=== PATIENT | female | born 2000 | race Caucasian/White ===

== ENCOUNTER 2024-01-07 18:26 | Emergency (ER) | payer SELFPAY ==
[2024-01-07] MEDS ORDERED: NA CHLORIDE 0.9% 1,000 ML ONE ×2 (18:39→20:34)
[2024-01-07 19:20] LABS: Absolute Lymphocytes (CBC) 1.2 K/uL (0.7-4.9); Absolute Monocytes 0.9 K/uL (0.1-1.3); Absolute Neutrophil 12.1 K/uL (1.8-8.0); Basophils % 0.2 % (0-1.3); Hematocrit 34.6 % (36.0-45.0); Hemoglobin 12.2 g/dL (12.0-15.0); Lymphocytes % 8.4 % (15.3-44.8); MCH 31.2 pg (27.0-35.0); MCHC 35.2 g/dL (32.0-36.0); MCV 88.6 fL (80-100); MPV 7.5 fL (7.6-11.3); Monocytes % 6.4 % (3.3-12.3); Platelets 281 thou/uL (152-406); Red Cell Distribution Width 13.3 % (12.1-15.2)
[2024-01-07 19:24] LABS: PT Prothrombin Time 11.6 SECONDS (9.5-12.5); PTT, Activated Partial Thromb 28.6 SECONDS (24.3-36.9); Protime INR 1.06
[2024-01-07 19:31] LABS: Albumin 3.3 g/dL (3.4-5.0); Albumin/Globulin Ratio 0.8 (1.1-1.8); Anion Gap 9.5 mEq/L (5.0-15.0); Bilirubin Total 2.7 mg/dL (0.2-1.0); Globulin 4.1 g/dL (2.3-3.5); Potassium 3.5 mEq/L (3.5-5.1); Protein, Total 7.4 g/dL (6.4-8.2)
--- NOTE | 2024-01-07 19:51 | RAD REPORT ---
EXAM DESCRIPTION: US - OB Limited - 01/07/2024 7:39 pm CLINICAL HISTORY: ABD PAIN Limited assessment, pain COMPARISON: No comparisons FINDINGS: A single cephalic presenting gestation is identified. Heart rate normal. measurements are as follows: AC:18.7 Centimeters 23 weeks 3 days FL:3.7 Centimeters 21 weeks 6 days The estimated gestational age (EGA) is 22 weeks 5 days with an JOSE MARTIN of05/07/2024. The placenta is fundal. The amniotic fluid index is grossly normal. IMPRESSION: Single live fetus as detailed above. No acute process seen.
[2024-01-07 21:09] LABS: Specific Gravity 1.015 (1.005-1.030); Sqamous Epithelial <5 /HPF (None Seen); Urine Bacteria None Seen /HPF (<20); Urine Bilirubin NEGATIVE (Negative); Urine Blood Negative (Negative); Urine Clarity Turbid (Clear); Urine Color Yellow (Yellow); Urine Culture Reflex Order NOT NEEDED; Urine Glucose NEGATIVE (Negative); Urine Ketones 1+ (Negative); Urine Microscopic Reflex YN ORDER UMIC; Urine Mucus Slight /HPF (None Seen); Urine Nitrite NEGATIVE (Negative); Urine Protein NEGATIVE (Negative); Urine RBC <5 /HPF (None Seen); Urine Urobilinogen 1+ (Normal); Urine WBC <5 /HPF (<5); Urine pH 6.5 (5.0-7.0)
--- NOTE | 2024-01-07 21:49 | EDPHYS ---
Physician Documentation [facility] Name: Elias Shen Age: 23 yrs Sex: Female : 2000 Arrival Date: 01/07/2024 Time: 18:26 Bed 13 Private MD: ED Physician Fei Hauser HPI: 01/06 21:45 This 23 yrs old Female presents to ER via Wheelchair with complaints of 22 Weeks kb , Vomiting, Shaking. 21:45 Pt is a 23 year old female who is 22 weeks who presents for RLQ pain that kb radiates across lower abd and into back that started last night. Reports nausea and vomiting today as well. Denies fever, but reports "shaking." Pt recently moved here from [place] so does not have an OB and hasn't seen one since she was 15 weeks. . MANAGER ADMINISTRATIVE SERVICES: 22:35 2, Premature 1, Verified cp4 Historical: - Allergies: 18:32 Amoxicillin; ll1 18:32 CLAVULANIC ACID; ll1 - PMHx: 18:32 GI issues; ll1 - PSHx: 18:32 Appendectomy; Cholecystectomy; ll1 - Immunization history:: Adult Immunizations up to date. - Infectious Disease History:: Denies. - Social history:: Smoking status: Patient denies any tobacco usage or history of. ROS: 20:32 Constitutional: As per HPI kb Exam: 20:05 Constitutional: This is a well developed, well nourished patient who is awake, alert, kb and in no acute distress. Head/Face: Normocephalic, atraumatic. ENT: Moist Mucous membranes Cardiovascular: Tachycardic rate Respiratory: Respirations even and unlabored. No increased work of breathing. Talking in full sentences Skin: Warm, dry with normal turgor. Normal color. MS/ Extremity: Pulses equal, no cyanosis. Neurovascular intact. Full, normal range of motion. Neuro: Awake and alert, GCS 15, oriented to person, place, time, and situation. Moves all extremities. Normal gait. 20:05 ECG was reviewed by the Attending Physician. 20:05 Abdomen/GI: Inspection: gravid appearance, is noted, Bowel sounds: normal, Palpation: soft, in all quadrants, moderate abdominal tenderness, in the right lower quadrant and left lower quadrant, Vital Signs: 18:33 BP 110 / 94; Pulse 150; Resp 17; Temp 98.9(O); Pulse Ox 100% ; Weight 55.79 kg; Height ll1 5 ft. 7 in. ; Pain 9/10; 19:49 BP 112 / 72; Pulse 125; Resp 18; Pulse Ox 100% ; cp4 20:41 BP 128 / 51; Pulse 134; Resp 18; Pulse Ox 100% ; cp4 21:21 BP 118 / 68; Pulse 149; Resp 18; Pulse Ox 100% ; cp4 22:35 BP 106 / 54; Pulse 147; Resp 18; Pulse Ox 100% ; cp4 18:33 Body Mass Index 19.26 (55.79 kg, 170.18 cm) ll1 18:33 Pain Scale: Adult ll1 MDM: 18:28 Patient medically screened. kb 21:42 Differential diagnosis: UTI, pyelonephritis, ovarian cyst, nonspecific abd pain, kb intraabdominal infection. Consideration of Admission/Observation Escalation of care including admission/observation considered. pt will be transferred due to lack of OB services at this facility. Management of patient was discussed with the following: Dr Pierre, [facility], accepts pt for transfer. Counseling: I had a detailed discussion with the patient and/or guardian regarding the historical points, exam findings, and any diagnostic results supporting the discharge/admit diagnosis, lab results, radiology results, the need to transfer to another facility, [facility] Replaced by [facility] does not immediately have the required specialist. 21:49 Data reviewed: vital signs, nurses notes. kb 01/06 18:35 Order name: Blood Culture Adult (2) kb 01/06 18:35 Order name: CBC with Diff; Complete Time: 19:26 kb 01/06 18:35 Order name: CMP; Complete Time: 19:33 kb 01/06 18:35 Order name: Lactate w/ 2H reflex if indic.; Complete Time: 19:53 kb 01/06 18:35 Order name: Protime (+inr); Complete Time: 19:26 kb 01/06 18:35 Order name: Ptt, Activated; Complete Time: 19:26 kb 01/06 18:35 Order name: Urinalysis w/ reflexes; Complete Time: 21:10 kb 01/06 18:35 Order name: OB Limited US; Complete Time: 19:53 kb 01/06 18:35 Order name: Accucheck; Complete Time: 19:00 kb 01/06 18:35 Order name: Cardiac monitoring; Complete Time: 18:43 kb 01/06 18:35 Order name: EKG - Nurse/Tech; Complete Time: 19:39 kb 01/06 18:35 Order name: IV Saline Lock - Large Bore; Complete Time: 19:00 kb 01/06 18:35 Order name: Labs collected and sent; Complete Time: 19:00 kb 01/06 18:35 Order name: O2 Per Protocol; Complete Time: 18:43 kb 01/06 18:35 Order name: O2 Sat Monitoring; Complete Time: 18:43 kb 01/06 18:35 Order name: Vital Signs; Complete Time: 18:43 kb EC:05 Rate is 127 beats/min. Rhythm is regular. QRS [place] is Normal. MA interval is normal at kb 166 msec. QRS interval is normal at 74 msec. QT interval is normal at 418 msec. Administered Medications: 19:00 Drug: NS 0.9% IV 1000 ml IV at 1000 ml once Route: IV; Rate: 1000 ml; Site: right bp forearm; 20:40 Follow up: Response: No adverse reaction; IV Status: Completed infusion cp4 20:40 Drug: NS 0.9% IV 1000 ml IV at 125 ml/hr continuous Route: IV; Rate: 125 ml/hr; Site: cp4 right antecubital; Disposition Summary: 01/07/24 21:48 Transfer Ordered Notes: Transfer Location: [facility] kb Reason: Higher level of care kb Condition: Stable kb Problem: new kb Symptoms: are unchanged kb Accepting Physician: Dr Pierre(01/07/24 22:38) cp4 Diagnosis - 22 weeks gestation of kb - Lower abdominal pain, unspecified kb - Elevated white blood cell count kb - Hyperbilirubinemia kb - Tachycardia, unspecified kb Discharge Instructions: - Discharge Summary Sheet cp4 Forms: - Medication Reconciliation Form kb - SBAR form cp4 Signatures: Dispatcher [employer] Danya Jo FNP-C FNP-Сергей Magallanes, RN RN Ketan Blandon RN RN ll1 Nadine Leary cp4 Corrections: (The following items were deleted from the chart) 18:36 18:36 OB Limited+US.RAD.BRZ ordered. EDMS EDMS 22:38 21:48 Dr Ignacio jiménez cp4
--- NOTE | 2024-01-07 21:49 | ER ---
Nurse's Notes [facility] Name: Elias Shen Age: 23 yrs Sex: Female : 2000 Arrival Date: 01/07/2024 Time: 18:26 Bed 13 Private MD: Diagnosis: 22 weeks gestation of ;Lower abdominal pain, unspecified;Elevated white blood cell count;Hyperbilirubinemia;Tachycardia, unspecified Presentation: 01/06 18:33 Chief complaint: Patient states: 22 weeks . N/V, weak, shaky since last night. ll1 G2, P1. Coronavirus screen: Client denies travel out of the [place] in the last 14 days. Ebola Screen: Patient denies travel to an Ebola-affected area in the 21 days before illness onset. Initial Sepsis Screen: Does the patient meet any 2 criteria? No. Patient's initial sepsis screen is negative. Does the patient have a suspected source of infection? No. Patient's initial sepsis screen is negative. Risk Assessment: Do you want to hurt yourself or someone else? Patient reports no desire to harm self or others. Onset of symptoms was January 06, 2024. 18:33 Method Of Arrival: Wheelchair ll1 18:33 Acuity: CHARLES 2 ll1 Triage Assessment: 18:41 General: Appears uncomfortable, Behavior is calm, cooperative, appropriate for age. hb General: Reports feeling ill for fatigue for. Pain: Complains of pain in abdomen Pain currently is 9 out of 10 on a pain scale. Quality of pain is described as aching. GI: Reports lower abdominal pain, nausea, vomiting. 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 - Infectious Disease History:: Denies. - Social history:: Smoking status: Patient denies any tobacco usage or history of. Screenin:[facility] ED Fall Risk Assessment (Adult) History of falling in the last 3 months, bp including since admission No falls in past 3 months (0 pts). Abuse screen: Denies threats or abuse. Denies injuries from another. Nutritional screening: No deficits noted. Tuberculosis screening: No symptoms or risk factors identified. Assessment: 18:45 General: Appears distressed, slender, Behavior is cooperative, appropriate for age, bp anxious. Pain: Denies pain. Cardiovascular: Rhythm is sinus tachycardia. GI: Abdomen is non-distended, Reports nausea. 21:22 Reassessment: Provider aware of heart rate. Fluids now bolusing. cp4 Vital Signs: 18:33 BP 110 / 94; Pulse 150; Resp 17; Temp 98.9(O); Pulse Ox 100% ; Weight 55.79 kg; Height ll1 5 ft. 7 in. ; Pain 9/10; 19:49 BP 112 / 72; Pulse 125; Resp 18; Pulse Ox 100% ; cp4 20:41 BP 128 / 51; Pulse 134; Resp 18; Pulse Ox 100% ; cp4 21:21 BP 118 / 68; Pulse 149; Resp 18; Pulse Ox 100% ; cp4 22:35 BP 106 / 54; Pulse 147; Resp 18; Pulse Ox 100% ; cp4 18:33 Body Mass Index 19.26 (55.79 kg, 170.18 cm) ll1 18:33 Pain Scale: Adult ll1 ED Course: 18:27 Patient arrived in ED. rg4 18:28 [facility] Tyson [facility]C [facility] kb 18:28 Fei Hauser MD is Attending Physician. kb 18:32 Arm band placed on. ll1 18:34 Triage completed. ll1 18:36 Сергей Agustin, DANGELO is Primary Nurse. bp 18:59 Inserted saline lock: 20 gauge in right forearm, using aseptic technique. Blood bp collected. 19:00 Patient has correct armband on for positive identification. Bed in low position. bp 19:41 OB Limited US In Process Unspecified. EDMS 22:36 Provided Education on: tachycardia, . cp4 22:36 No provider procedures requiring assistance completed. Patient transferred, IV remains cp4 in place. Administered Medications: 19:00 Drug: NS 0.9% IV 1000 ml IV at 1000 ml once Route: IV; Rate: 1000 ml; Site: right bp forearm; 20:40 Follow up: Response: No adverse reaction; IV Status: Completed infusion cp4 20:40 Drug: NS 0.9% IV 1000 ml IV at 125 ml/hr continuous Route: IV; Rate: 125 ml/hr; Site: cp4 right antecubital; Medication: 22:38 VIS not applicable for this client. cp4 Outcome: 21:48 ER care complete, transfer ordered by MD. jiménez 22:36 Transferred [facility] Transfer form completed. X-rays sent w/ cp4 patient. 22:36 Condition: stable 22:36 Instructed on the need for transfer, 22:38 Patient left the ED. cp4 Signatures: Dispatcher [employer] EDMS Danya Tyson, BRAND AMBASSADOR-C BRAND AMBASSADOR-CkShalini Quigley, RN RN Luz Ledezma rg4 Сергей Agustin RN RN bp Ketan Martinez RN RN ll1 Nadine Leary cp4 Corrections: (The following items were deleted from the chart) 18:42 18:33 Chief complaint: Patient states: 22 weeks . N/V, weak, shaky since last hb night ll1
[2024-01-07 22:49] VITALS: TEMP 98.9; O2SAT 100
[2024-01-07 23:09] VITALS: BP 106/54
--- NOTE | 2024-01-10 15:00 | EKG ---
Test Date: 2024-01-07 Test Time: 19:43:01 Straw Boss: FRANK MEASUREMENT RESULTS: Intervals: Rate: 127 AL: 166 QRSD: 74 QT: 288 QTc: 418 [place]: P: 71 AL: 166 QRS: 93 T: 63 INTERPRETIVE STATEMENTS: Sinus tachycardia Otherwise normal ECG No previous ECG available for comparison Electronically Signed On 01-10-24 14:53:27 CDT by Ke Hutchins
== END 2024-01-07 22:38 | disposition short-term general hospital (02) ==
LOC: ER 18:26
DX: O26.612 Liver and biliary tract disorders in pregnancy, second trimester (principal); O99.891 Other specified diseases and conditions complicating pregnancy; E80.6 Other disorders of bilirubin metabolism; D72.829 Elevated white blood cell count, unspecified; Z3A.22 22 weeks gestation of pregnancy
CPT/HCPCS: 36415; 76815; 80053; 81001; 83605; 85025; 85610; 85730; 87040; 93005; 96360; 96361; 99285; J7030

== ENCOUNTER 2024-05-18 17:53 | Emergency (ER) | payer SELFPAY ==
[2024-05-18 19:58] LABS: Absolute Lymphocytes (CBC) 1.6 K/uL (0.7-4.9); Absolute Monocytes 0.5 K/uL (0.1-1.3); Absolute Neutrophil 8.8 K/uL (1.8-8.0); Basophils % 0.4 % (0-1.3); Eosinophils % 0.1 % (0-4.4); Hematocrit 35.6 % (36.0-45.0); Hemoglobin 12.2 g/dL (12.0-15.0); Lymphocytes % 14.4 % (15.3-44.8); MCH 28.1 pg (27.0-35.0); MCHC 34.2 g/dL (32.0-36.0); MCV 82.2 fL (80-100); MPV 7.1 fL (7.6-11.3); Monocytes % 4.8 % (3.3-12.3); Neutrophils % 80.3 % (41.7-73.7); Nucleated Red Blood Cells % 0.1 % (0-0); Platelets 314 thou/uL (152-406); RBC Red Blood Cell Count 4.34 M/uL (3.86-4.86); Red Cell Distribution Width 16.7 % (12.1-15.2)
[2024-05-18] MEDS ORDERED: CLINDAMYCIN 900MG/D5W 900 MG/50 ML IVPB IV ONE (20:08)
[2024-05-18] MEDS ORDERED: NA CHLORIDE 0.9% 100 ML ONE (20:08)
[2024-05-18] MEDS ORDERED: IBUPROFEN 200 MG TAB PO ONE (20:08)
[2024-05-18] MEDS ORDERED: IBUPROFEN 400 MG TAB ONE (20:08)
[2024-05-18] MEDS ORDERED: ACETAMINOPHEN 500 MG TAB ONE (20:08)
[2024-05-18] MEDS ORDERED: NA CHLORIDE 0.9% 2,000 ML ONE (20:09)
[2024-05-18] MEDS ORDERED: CEFAZOLIN SODIUM 2 GM/VIAL ONE (20:09)
[2024-05-18 20:31] LABS: Albumin 3.1 g/dL (3.4-5.0); Albumin/Globulin Ratio 0.7 (1.1-1.8); Anion Gap 10.8 mEq/L (5.0-15.0); Bilirubin Total 0.7 mg/dL (0.2-1.0); Globulin 4.2 g/dL (2.3-3.5); Potassium 2.8 mEq/L (3.5-5.1); Protein, Total 7.3 g/dL (6.4-8.2)
--- NOTE | 2024-05-18 20:50 | EDPHYS ---
Physician Documentation [facility] Name: Elias Shen Age: 23 yrs Sex: Female : 2000 Arrival Date: 05/18/2024 Time: 17:53 Bed 14 Private MD: ED Physician Fei Hauser HPI: 05/18 19:20 This 23 yrs old Female presents to ER via Ambulatory with complaints of annie Passed Out Prior To Arrival, Flu Symptoms, Breast Lump. 19:20 The patient has experienced near-syncope, almost passed out, felt dizzy, felt faint. annie Onset: The symptoms/episode began/occurred just prior to arrival. Duration: This was a single episode. Context: the episode(s) was witnessed, by family. Associated injury: The patient did not suffer any apparent associated injury. Associated signs and symptoms: The patient has no apparent associated signs or symptoms. Current symptoms: Currently, the patient is not experiencing any symptoms, the patient feels back to baseline. The patient has not experienced similar symptoms in the past. 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 - Infectious Disease History:: Denies. - Social history:: Smoking status: Patient denies any tobacco usage or history of. - Family history:: not pertinent. ROS: 19:20 Eyes: Negative for injury, pain, redness, and discharge, ENT: Negative for injury, annie pain, and discharge, Neck: Negative for injury, pain, and swelling, Respiratory: Negative for shortness of breath, cough, wheezing, and pleuritic chest pain, Abdomen/GI: Negative for abdominal pain, nausea, vomiting, diarrhea, and constipation, Back: Negative for injury and pain, : Negative for injury, bleeding, discharge, and swelling, MS/Extremity: Negative for injury and deformity, Neuro: Negative for headache, weakness, numbness, tingling, and seizure, Psych: Negative for depression, anxiety, suicide ideation, homicidal ideation, and hallucinations, Allergy/Immunology: Negative for hives, rash, and allergies, Endocrine: Negative for neck swelling, polydipsia, polyuria, polyphagia, and marked weight changes, Hematologic/Lymphatic: Negative for swollen nodes, abnormal bleeding, and unusual bruising, 19:20 Cardiovascular: Positive for palpitations, 19:20 Skin: Positive for erythema, swelling, of the left lateral anterior chest and left breast, Exam: 19:20 Constitutional: This is a well developed, well nourished patient who is awake, alert, annie and in no acute distress. Head/Face: Normocephalic, atraumatic. Eyes: Pupils equal round and reactive to light, extra-ocular motions intact. Lids and lashes normal. Conjunctiva and sclera are non-icteric and not injected. Cornea within normal limits. Periorbital areas with no swelling, redness, or edema. ENT: Nares patent. No nasal discharge, no septal abnormalities noted. Tympanic membranes are normal and external auditory canals are clear. Oropharynx with no redness, swelling, or masses, exudates, or evidence of obstruction, uvula midline. Mucous membranes moist. Neck: Trachea midline, no thyromegaly or masses palpated, and no cervical lymphadenopathy. Supple, full range of motion without nuchal rigidity, or vertebral point tenderness. No Meningismus. Chest/axilla: Normal chest wall appearance and motion. Nontender with no deformity. No lesions are appreciated. Cardiovascular: Regular rate and rhythm with a normal S1 and S2. No gallops, murmurs, or rubs. Normal PMI, no JVD. No pulse deficits. Respiratory: Lungs have equal breath sounds bilaterally, clear to auscultation and percussion. No rales, rhonchi or wheezes noted. No increased work of breathing, no retractions or nasal flaring. Abdomen/GI: Soft, non-tender, with normal bowel sounds. No distension or tympany. No guarding or rebound. No evidence of tenderness throughout. Back: No spinal tenderness. No costovertebral tenderness. Full range of motion. Skin: Warm, dry with normal turgor. Normal color with no rashes, no lesions, and no evidence of cellulitis. Neuro: Awake and alert, GCS 15, oriented to person, place, time, and situation. Cranial nerves II-XII grossly intact. Motor strength 5/5 in all extremities. Sensory grossly intact. Cerebellar exam normal. Normal gait. Psych: Awake, alert, with orientation to person, place and time. Behavior, mood, and affect are within normal limits. 19:20 Musculoskeletal/extremity: ROM: intact in all extremities, full active range of motion, full passive range of motion, Circulation is intact in all extremities. Sensation intact. Compartment Syndrome exam of affected extremity: the left lateral anterior chest, left nipple and left breast Vital Signs: 18:28 BP 129 / 91; Pulse 110; Resp 18; Temp 100.6(O); Pulse Ox 96% ; Weight 52.16 kg; Height db 5 ft. 7 in. ; Pain 7/10; 20:41 BP 125 / 82; Pulse 96; Pulse Ox 100% on R/A; MAP 94 mmHg; tm6 22:22 BP 127 / 86; Pulse 94; Resp 19; Temp 99.5; Pulse Ox 99% on R/A; MAP 98 mmHg; Pain 0/10; tm6 18:28 Body Mass Index 18.01 (52.16 kg, 170.18 cm) db 18:28 Pain Scale: Adult db 22:22 Pain Scale: Adult tm6 MDM: 18:38 Medical Screening Exam initiated annie 19:23 Differential Diagnosis: sepsis. Data reviewed: vital signs, nurses notes, lab test annie result(s), radiologic studies, ultrasound. Consideration of Admission/Observation Escalation of care including admission/observation considered. I considered the following discharge prescriptions or medication management in the emergency department Medications were administered in the Emergency Department. See MAR. 05/18 19:20 Order name: CBC with Diff; Complete Time: 20:10 [facility] 05/18 19:20 Order name: Comprehensive Metabolic Panel; Complete Time: 20:35 [facility] 05/18 19:25 Order name: Blood Culture Adult (2) [facility] 05/18 19:25 Order name: Lactate w/ 2H reflex if indic.; Complete Time: 20:16 [facility] 05/18 21:34 Order name: Extremity Nonvascular Complete EDMS 05/18 18:40 Order name: PO challenge; Complete Time: 21:58 [facility] 05/18 20:35 Order name: PO challenge: JUICE X2; Complete Time: 21:50 annie Administered Medications: 19:16 CANCELLED (Duplicate Order): [id number] mg PO once annie 20:38 Drug: Acetaminophen PO 1000 mg PO once Route: PO; tm6 21:58 Follow up: Response: No adverse reaction tm6 20:38 Drug: Ibuprofen PO 600 mg PO once Route: PO; tm6 21:58 Follow up: Response: No adverse reaction tm6 20:38 Drug: NS 0.9% IV 1000 ml IV at 1000 ml once; to be given as a bolus over 60 minutes tm6 Route: IV; Rate: 1000 ml; Site: right antecubital; 22:07 Follow up: Response: No adverse reaction; IV Status: Completed infusion; IV Intake: tm6 1000ml 20:38 Drug: ceFAZolin IVPB 2 grams IVPB once over 30 mins; (mix in 100 mL NS) Route: IVPB; tm6 Infused Over: 30 mins; Site: right antecubital; 21:50 Follow up: Response: No adverse reaction; IV Status: Completed infusion; IV Intake: tm6 100ml 20:38 Drug: NS 0.9% IV 1000 ml IV at 1 bolus Per protocol; to be given as a bolus over 60 tm6 minutes Route: IV; Rate: 1 bolus; Site: right antecubital; 22:07 Follow up: Response: No adverse reaction; IV Status: Completed infusion; IV Intake: tm6 1000ml 21:49 Drug: Clindamycin IVPB 900 mg IVPB once over 30 mins; (mix in 50 mL) Route: IVPB; tm6 Infused Over: 30 mins; Site: right antecubital; 22:08 Follow up: Response: No adverse reaction; IV Status: Completed infusion; IV Intake: [id number] 22:07 Drug: Cephalexin PO 500 mg PO once Route: PO; tm6 22:07 Drug: Clindamycin PO 300 mg PO once Route: PO; tm6 22:07 Drug: Potassium PO Effervescent Tablet 50 mEq PO once; dissolve in 4 ounces of water or tm6 juice Route: PO; 22:07 Drug: Potassium PO Effervescent Tablet 25 mEq PO once; dissolve in 4 ounces of water or tm6 juice BEFORE DISPO Route: PO; Disposition Summary: 05/18/24 20:49 Discharge Ordered Notes: Location: Home annie Problem: new annie Symptoms: have improved annie Condition: Stable annie Diagnosis - Fever, unspecified annie - Nonpurulent mastitis associated with annie - Breast engorgement of annie - Hypokalemia annie Followup: annie - With: Private Physician - When: 2 - 3 days - Reason: Recheck today's complaints, Continuance of care, Re-evaluation by your physician Followup: [facility] - With: Robert Peralta MD - When: 2 - 3 days - Reason: Recheck today's complaints, Re-evaluation by your physician Discharge Instructions: - Discharge Summary Sheet [facility] - Potassium Content of Foods annie - Fever, Adult annie - Mastitis [facility] - and Mastitis [facility] - Mastitis, [id number] [facility] - Fever, Adult, [id number] [facility] - Hypokalemia [facility] Forms: - Medication Reconciliation Form [facility] - Antibiotic Education [facility] - Prescription Opioid Use [facility] - Patient Portal Instructions [facility] - Leadership Thank You Letter [facility] Prescriptions: - Cephalexin 500 mg Oral capsule - take 1 capsule ORAL route every 6 hours for 7 days; 28 capsule; Refills: 0, [facility] Product Selection Permitted - Clindamycin HCl 300 mg Oral capsule - take 1 capsule ORAL route every 6 hours for 7 days; 28 capsule; Refills: 0, [facility] Product Selection Permitted - Potassium Chloride 20 meq Oral Packet - take 1 packet ORAL route once daily 1 packet in 6 (six) ounces of water or [facility] juice; Take after meal; 14 packet; Refills: 0, Product Selection Permitted Signatures: Dispatcher [employer] EDFei Zavaleta MD MD cha Benton, Danielle, RN RN Mellisa Araujo RN RN tm6 Corrections: (The following items were deleted from the chart) 19:16 18:40 EKG - Nurse/Tech ordered. [facility] 19:16 18:40 AZITHromycin PO 500 mg PO once ordered. [facility] 21:27 19:20 Extrmty Nonvasular Limited+US.RAD.BRZ ordered. EDCO EDMS 21:34 20:57 Follow Up Breast Axilla Comp ordered. EDMS EDMS
--- NOTE | 2024-05-18 20:50 | ER ---
Nurse's Notes [facility] Name: Elias Shen Age: 23 yrs Sex: Female : 2000 Arrival Date: 05/18/2024 Time: 17:53 Bed 14 Private MD: Diagnosis: Fever, unspecified;Nonpurulent mastitis associated with ;Breast engorgement of ;Hypokalemia Presentation: 05/18 18:28 Chief complaint: Patient states: LEFT BREAST REDNESS X 4 DAYS. STATES IS BREAST db FEEDING. 13 DAYS POST . FEVER AND FLU LIKE SYMPTOMS STARTED TODAY TOOK IBUPROFEN AND TYLENOL AT 1400 TODAY. Coronavirus screen: Client denies travel out of the [place] in the last 14 days. At this time, the client does not indicate any symptoms associated with coronavirus-19. Ebola Screen: Patient negative for fever greater than or equal to 101.5 degrees Fahrenheit, and additional compatible Ebola Virus Disease symptoms Patient denies exposure to infectious person. Patient denies travel to an Ebola-affected area in the 21 days before illness onset. No symptoms or risks identified at this time. Initial Sepsis Screen: Does the patient meet any 2 criteria? HR > 90 bpm. No. Patient's initial sepsis screen is negative. Does the patient have a suspected source of infection? No. Patient's initial sepsis screen is negative. Risk Assessment: Do you want to hurt yourself or someone else? Patient reports no desire to harm self or others. Onset of symptoms was May 18, 2024. 18:28 Method Of Arrival: Ambulatory db 18:28 Acuity: CHARLES 3 db Triage Assessment: 18:31 General: Appears in no apparent distress. comfortable, Behavior is calm, cooperative. db Pain: Complains of pain in chest, LEFT BREAST. Neuro: Level of Consciousness is awake, alert, obeys commands, Oriented to person, place, time, situation. Respiratory: Airway is patent Respiratory effort is even, unlabored, Respiratory pattern is regular, symmetrical. 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 - Infectious Disease History:: Denies. - Social history:: Smoking status: Patient denies any tobacco usage or history of. - Family history:: not pertinent. Screenin:42 [facility] ED Fall Risk Assessment (Adult) History of falling in the last 3 months, tm6 including since admission No falls in past 3 months (0 pts) Confusion or Disorientation No (0 pts) Intoxicated or Sedated No (0 pts) Impaired Gait No (0 pts) Mobility Assist Device Used No (0 pt) Altered Elimination No (0 pt) Score/Fall Risk Level 0 - 2 = Low Risk Oriented to surroundings, Maintained a safe environment, Educated pt \T\ family on fall prevention, incl call for assistance when getting out of bed. Abuse screen: Denies threats or abuse. Denies injuries from another. Nutritional screening: No deficits noted. Tuberculosis screening: No symptoms or risk factors identified. Assessment: 20:41 General: Appears in no apparent distress. Behavior is calm, cooperative. Pain: tm6 Complains of pain in left breast. Neuro: Level of Consciousness is awake, alert, obeys commands, Oriented to person, place, time, situation. Cardiovascular: Patient's skin is warm and dry. Respiratory: Airway is patent Respiratory effort is even, unlabored, Respiratory pattern is regular, symmetrical. GI: No signs and/or symptoms were reported involving the gastrointestinal system. Abdomen is flat, non-distended. : No signs and/or symptoms were reported regarding the genitourinary system. EENT: No signs and/or symptoms were reported regarding the EENT system. Derm: No signs and/or symptoms reported regarding the dermatologic system. Musculoskeletal: Reports pain in left breast. 22:23 Reassessment: Patient and/or family updated on plan of care and expected duration. Pain tm6 level reassessed. Patient is alert, oriented x 3, equal unlabored respirations, skin warm/dry/pink. Vital Signs: 18:28 BP 129 / 91; Pulse 110; Resp 18; Temp 100.6(O); Pulse Ox 96% ; Weight 52.16 kg; Height db 5 ft. 7 in. ; Pain 7/10; 20:41 BP 125 / 82; Pulse 96; Pulse Ox 100% on R/A; MAP 94 mmHg; tm6 22:22 BP 127 / 86; Pulse 94; Resp 19; Temp 99.5; Pulse Ox 99% on R/A; MAP 98 mmHg; Pain 0/10; tm6 18:28 Body Mass Index 18.01 (52.16 kg, 170.18 cm) db 18:28 Pain Scale: Adult db 22:22 Pain Scale: Adult tm6 ED Course: 17:55 Patient arrived in ED. im 18:31 Triage completed. db 18:31 Arm band placed on right wrist. Patient placed in waiting room. db 18:38 Fei Hauser MD is Attending Physician. annie 19:28 First set of blood cultures drawn by me. ty 19:40 Initial lab(s) drawn, by me, sent to lab. Second set of blood cultures drawn. ty 19:46 Inserted saline lock: 22 gauge in right antecubital area, using aseptic technique. ty Blood collected. Flushed with 10 mL NS. 20:04 Mellisa Sellers, DANGELO is Primary Nurse. tm6 20:23 Fei Pena PA is PHCP. cp 20:42 Patient has correct armband on for positive identification. Bed in low position. Call tm6 light in reach. Side rails up X 1. Provided Education on: use of call astudillo. Client placed on continuous cardiac and pulse oximetry monitoring. NIBP monitoring applied. Pulse ox on. NIBP on. Door closed. Noise minimized. Warm blanket given. 20:49 Robert Peralta MD is Referral Physician. annie 21:48 Extremity Nonvascular Complete In Process Unspecified. EDMS 22:23 No provider procedures requiring assistance completed. IV discontinued, intact, tm6 bleeding controlled, No redness/swelling at site. Pressure dressing applied. Administered Medications: 19:16 CANCELLED (Duplicate Order): [id number] mg PO once annie 20:38 Drug: Acetaminophen PO 1000 mg PO once Route: PO; tm6 21:58 Follow up: Response: No adverse reaction tm6 20:38 Drug: Ibuprofen PO 600 mg PO once Route: PO; tm6 21:58 Follow up: Response: No adverse reaction tm6 20:38 Drug: NS 0.9% IV 1000 ml IV at 1000 ml once; to be given as a bolus over 60 minutes tm6 Route: IV; Rate: 1000 ml; Site: right antecubital; 22:07 Follow up: Response: No adverse reaction; IV Status: Completed infusion; IV Intake: tm6 1000ml 20:38 Drug: ceFAZolin IVPB 2 grams IVPB once over 30 mins; (mix in 100 mL NS) Route: IVPB; tm6 Infused Over: 30 mins; Site: right antecubital; 21:50 Follow up: Response: No adverse reaction; IV Status: Completed infusion; IV Intake: tm6 100ml 20:38 Drug: NS 0.9% IV 1000 ml IV at 1 bolus Per protocol; to be given as a bolus over 60 tm6 minutes Route: IV; Rate: 1 bolus; Site: right antecubital; 22:07 Follow up: Response: No adverse reaction; IV Status: Completed infusion; IV Intake: tm6 1000ml 21:49 Drug: Clindamycin IVPB 900 mg IVPB once over 30 mins; (mix in 50 mL) Route: IVPB; tm6 Infused Over: 30 mins; Site: right antecubital; 22:08 Follow up: Response: No adverse reaction; IV Status: Completed infusion; IV Intake: [id number] 22:07 Drug: Cephalexin PO 500 mg PO once Route: PO; tm6 22:07 Drug: Clindamycin PO 300 mg PO once Route: PO; tm6 22:07 Drug: Potassium PO Effervescent Tablet 50 mEq PO once; dissolve in 4 ounces of water or tm6 juice Route: PO; 22:07 Drug: Potassium PO Effervescent Tablet 25 mEq PO once; dissolve in 4 ounces of water or tm6 juice BEFORE DISPO Route: PO; Medication: 22:23 VIS not applicable for this client. tm6 Intake: 21:50 IV: 100ml; Total: 100ml. tm6 22:07 IV: 1000ml; Total: 1100ml. tm6 22:07 IV: 1000ml; Total: 2100ml. tm6 22:08 IV: 50ml; Total: 2150ml. tm6 Outcome: 20:49 Discharge ordered by . annie 22:23 Discharged to home ambulatory, tm6 22:23 Condition: stable 22:23 Discharge instructions given to patient, Instructed on discharge instructions, follow up and referral plans. medication usage, Demonstrated understanding of instructions, follow-up care, medications, Prescriptions given X 3, 22:23 Patient left the ED. tm6 Signatures: Dispatcher [employer] EDNC Fei Hauser MD MD cha Page, Corey PA PA bebe Villafuerte Carrie, RN RN db Mai Alfonso Tawney RN RN tm6 Tim Siegel Corrections: (The following items were deleted from the chart) 18:33 18:28 Initial Sepsis Screen: Does the patient meet any 2 criteria? No. Patient's db initial sepsis screen is negative. Does the patient have a suspected source of infection? No. Patient's initial sepsis screen is negative. db
[2024-05-18] MEDS ORDERED: CEPHALEXIN 250 MG CAP ONE (22:02)
[2024-05-18] MEDS ORDERED: POTASSIUM 25 MEQ EFFERV TAB ONE (22:02)
--- NOTE | 2024-05-18 22:14 | RAD REPORT ---
EXAM: US Extremity Nonvascular Complete HISTORY: LEFT BREAST PAIN AND SWELLING COMPARISON: None TECHNIQUE: Sonographic grayscale and color flow imaging of the left breast including the region of in terest as described by the patient. FINDINGS: Skin thickening and subcutaneous edema in the upper outer left breast and subareolar region, with het erogeneity of the breast tissue compared to the right subareolar region. Mild hypervascularity, with some engorged venous structures. No discrete fluid collections. IMPRESSION: Findings suggestive of nonlocalized left mastoiditis as above, without evidence of a discrete fluid c ollection.
[2024-05-19 08:32] VITALS: BP 127/86; TEMP 99.5; O2SAT 99
== END 2024-05-18 22:23 | disposition home or self-care (01) ==
LOC: ER 17:53
DX: O91.23 Nonpurulent mastitis associated with lactation (principal); E87.6 Hypokalemia
CPT/HCPCS: 36415; 76881; 80053; 83605; 85025; 87040; 96365; 99284; J7030